=== PATIENT | male | born 1995 | race Caucasian/White ===

== ENCOUNTER 2020-12-18 20:20 | Emergency (ER) | payer SELFPAY ==
[~2020-12-18] VITALS: Ht 167.6 cm; Wt 67.0 kg
--- NOTE | 2020-12-18 20:25 | NUR ---
PT BIB FRIENDS. PT IS ALOC, COMBATIVE, NO FOLLOWING COMMANDS. PER PT'S FRIENDS, PT IS INSULIN DEPANDANT DIABETIC AND IS MOST LIKELY HYPOGLYCEMIC. PT PLACED IN HOSPITAL BED. PT RESTRAINED IN 4 POINT RESTRAINTS FOR PT AND STAFF SAFETY PT IS VERY COMBATIVE. BLOOD SUGAR CHECKED, FSBS IS 23. ERMD DR. CABALLERO AT BEDSIDE. IV STARTED AND IV DEXTROSE GIVEN PER IN PERSON VERBAL ORDER.
[2020-12-18] MEDS ORDERED: DEXTROSE 50%, 50ML SYRINGE IVPush ONE (20:30)
--- NOTE | 2020-12-18 20:35 | NUR ---
PT NOW AWAKE, ON MONITORS. PT IS ABLE TO ANSWER QUESTIONS AND FOLLOW COMMANDS. PT IS COOPERATIVE, RESTRAINTS REMOVED PT IS NOW CALM. PT ORIENTED X4 CURRENTLY. PT STATES HX OF DM TYPE1, AND STATES HE DID NOT EAT ENOUGH TODAY.
--- NOTE | 2020-12-18 20:45 | NUR ---
PT GIVEN SOME FOOD, EATING AND TOLERATING WELL. PT WITH VSS, NO DISTRESS. FRIENDS AT BEDSIDE. PT REMAINS A&OX4, GCS 15.
--- NOTE | 2020-12-18 20:50 | NUR ---
PT REFUSES LAB DRAW.
--- NOTE | 2020-12-18 21:38 | NUR ---
PT OK FOR D/C PER ERMD. PT IS AWAKE AND ALERT, ABLE TO FOLLOW ALL COMMANDS. FSBS 133. PT VERBALIZES UNDERSTANDING OF D/C INSTRUCTIONS. PT WITH STEADY GAIT UPON D/C.
[2020-12-18 21:41] VITALS: BP 146/78
== END 2020-12-18 22:54 | disposition home or self-care (01) ==
LOC: ED 22:00
DX: R41.82 Altered mental status, unspecified (principal); E10.649 Type 1 diabetes mellitus with hypoglycemia without coma
CPT/HCPCS: 82962; 96374; 99283